=== PATIENT | male | born 1945 | race Caucasian/White ===

== ENCOUNTER 2017-09-15 08:46 | Day surgery (SDC) | payer OTHER ==
[~2017-09-15 08:46] MED LIST: AMLO5 PO; ATOR80 PO; CARV6.25 PO; FINA5 PO; HYDCHL25 PO; LISI20 PO; METF500 PO; Norco 10-325 T1 EACH PO; OXYC10TA19 PO; Omeprazole20 M1 PO; Prozac20 MG PO; TAMS.4ER PO
== END 2017-09-15 11:58 | disposition home or self-care (01) ==
LOC: RAD 08:46 → CT 10:00 → RAD 11:58 → CT 09-17 10:00
PROVIDERS: Radiology Diagnostic Radiology
PROC: BR27YZZ Computerized Tomography (CT Scan) of Thoracic Spine using Other Contrast (ICD-10-PCS; principal; 2017-09-15 11:00)
DX: M47.815 Spondylosis without myelopathy or radiculopathy, thoracolumbar region (principal); N20.0 Calculus of kidney; M51.24 Other intervertebral disc displacement, thoracic region
CPT/HCPCS: 62305; 72129; 72132; Q9966

== ENCOUNTER 2020-01-24 11:01 | Day surgery (SDC) | payer OTHER ==
[~2020-01-24] VITALS: Ht 177.8 cm; Wt 92.0 kg
[~2020-01-24 11:01] MED LIST changes: +Aspir 8181 MG PO; +CLOP75 PO; +NITR.4SL SL; +PANT40; +SERT50 PO
--- NOTE | 2020-01-24 11:56 | NUR ---
LINQ IMPLANT EXPLAINED ALL QUESTIONS ANSWERED. CALL LIGHT IN REACH.
--- NOTE | 2020-01-24 12:54 | NUR ---
TIME OUT WAS COMPLETED. PT TOLERATED LINQ IMPLANT WELL. LINQ CHEST WALL SITE SOFT NON-TENDER WITH NO HEMATOMA,NO BLEEDING AND INTACT DRESSING. [employer] REP JAIME IN ROOM FOR PT EDUCATION AND ANSWER PT QUESTIONS.
--- NOTE | 2020-01-24 13:19 | NUR ---
NO CHANGES TO LINQ SITE. DISCHARGE INSTRUCTIONS REVIEWED ALL QUESTIONS ANSWERED. PT AMBULATED OUT.
== END 2020-01-24 23:25 | disposition home or self-care (01) ==
LOC: MHTC 11:01
DX: R55 Syncope and collapse (principal); I10 Essential (primary) hypertension; E78.5 Hyperlipidemia, unspecified; K21.9 Gastro-esophageal reflux disease without esophagitis; Z88.8 Allergy status to other drugs, medicaments and biological substances; E11.9 Type 2 diabetes mellitus without complications; Z79.899 Other long term (current) drug therapy; Z95.1 Presence of aortocoronary bypass graft; Z87.891 Personal history of nicotine dependence; Z79.84 Long term (current) use of oral hypoglycemic drugs; Z79.02 Long term (current) use of antithrombotics/antiplatelets; Z79.82 Long term (current) use of aspirin; Z91.018 Allergy to other foods; Z91.012 Allergy to eggs
CPT/HCPCS: 33285; C1764

== ENCOUNTER 2020-02-04 12:20 | Emergency (ER) | payer OTHER, MEDICARE ==
[~2020-02-04] VITALS: Ht 177.8 cm; Wt 91.6 kg
[2020-02-04] MEDS ORDERED: METPRE4DP PO (15:40)
== END 2020-02-04 16:17 | disposition home or self-care (01) ==
LOC: ER 12:20
DX: M54.16 Radiculopathy, lumbar region (principal); Z79.84 Long term (current) use of oral hypoglycemic drugs; Z79.82 Long term (current) use of aspirin; Z79.02 Long term (current) use of antithrombotics/antiplatelets; Z79.899 Other long term (current) drug therapy
CPT/HCPCS: 96374; 96375; 99283-25; J1100; J1170; J1885; J2405

== ENCOUNTER 2023-01-05 16:08 | Inpatient (IN) | payer OTHER ==
[~2023-01-05] VITALS: Ht 177.8 cm; Wt 78.0 kg
[~2023-01-05 16:08] MED LIST changes: +METPRE4DP PO
[2023-01-05 17:33] LABS: BASOPHILS ABSOLUTE AUTO 0.05 K/mm3 (0.00-0.23); BASOPHILS PERCENT AUTO 1 % (0-2); EOSINOPHILS ABSOLUTE AUTO 0.39 K/mm3 (0.00-0.68); EOSINOPHILS PERCENT AUTO 5 % (0-6); Hematocrit 35.2 % (37.0-53.0); Hemoglobin 11.3 g/dL (13.5-17.5); IMMATURE GRAN ABSOLUTE AUTO 0.04 K/mm3 (0.00-0.10); IMMATURE GRAN PERCENT AUTO 1 % (0-1); LYMPHOCYTES ABSOLUTE AUTO 1.45 K/mm3 (0.84-5.20); LYMPHOCYTES PERCENT AUTO 18 % (21-46); MONOCYTES ABSOLUTE AUTO 0.67 K/mm3 (0.16-1.47); MONOCYTES PERCENT AUTO 8 % (4-13); Mean Corpuscular HGB 25.5 pg (26.0-34.0); Mean Corpuscular HGB Conc 32.1 g/dL (31.5-36.5); Mean Corpuscular Volume 79 fL (80-100); Mean Platelet Volume 9.3 fL (9.1-12.4); NEUTROPHILS ABSOLUTE AUTO 5.49 K/mm3 (1.96-9.15); NEUTROPHILS PERCENT AUTO 68 % (41-73); Platelet Count 346 K/mm3 (150-400); RDW Coefficient Variation 15.2 % (11.7-14.2); RDW Standard Deviation 43.8 fL (35.1-46.3); Red Blood Cell Count 4.44 M/mm3 (4.30-5.90); White Blood Cell Count 8.09 K/mm3 (4.00-11.30)
[2023-01-05 17:43] LABS: Albumin, Blood 3.5 g/dL (3.4-5.0); Albumin/Globulin Ratio 1.1 (0.8-1.8); Bilirubin, Total 0.5 mg/dL (0.1-1.0); Bun/Creatinine Ratio 18.3 (12.0-20.0); Calcium, Blood 9.3 mg/dL (8.5-10.1); Creatinine, Blood 1.09 mg/dL (0.60-1.20); Globulin, Blood 3.3 g/dL (2.2-4.0); Potassium, Blood 3.8 mmol/L (3.5-5.5); Total Protein, Blood 6.8 g/dL (6.4-8.2)
[2023-01-05 17:48] LABS: International Normalized Ratio 1.04; Prothrombin Time Results 10.9 Sec (9.7-11.5)
[2023-01-05 22:42] VITALS: BP 132/59
[2023-01-05] MEDS ORDERED: ACET500 PO (22:48)
[2023-01-05] MEDS ORDERED: Cymbalta20 MG PO (22:51)
[2023-01-05] MEDS ORDERED: JARDIANCE25 MG PO (22:52)
[2023-01-06 00:17] LABS: BASOPHILS ABSOLUTE AUTO 0.06 K/mm3 (0.00-0.23); BASOPHILS PERCENT AUTO 1 % (0-2); EOSINOPHILS ABSOLUTE AUTO 0.51 K/mm3 (0.00-0.68); EOSINOPHILS PERCENT AUTO 5 % (0-6); Hematocrit 35.1 % (37.0-53.0); Hemoglobin 11.5 g/dL (13.5-17.5); IMMATURE GRAN ABSOLUTE AUTO 0.04 K/mm3 (0.00-0.10); IMMATURE GRAN PERCENT AUTO 0 % (0-1); LYMPHOCYTES ABSOLUTE AUTO 2.05 K/mm3 (0.84-5.20); LYMPHOCYTES PERCENT AUTO 22 % (21-46); MONOCYTES ABSOLUTE AUTO 0.95 K/mm3 (0.16-1.47); MONOCYTES PERCENT AUTO 10 % (4-13); Mean Corpuscular HGB 25.7 pg (26.0-34.0); Mean Corpuscular HGB Conc 32.8 g/dL (31.5-36.5); Mean Corpuscular Volume 78 fL (80-100); Mean Platelet Volume 9.2 fL (9.1-12.4); NEUTROPHILS ABSOLUTE AUTO 5.76 K/mm3 (1.96-9.15); NEUTROPHILS PERCENT AUTO 62 % (41-73); Platelet Count 331 K/mm3 (150-400); RDW Coefficient Variation 15.4 % (11.7-14.2); Red Blood Cell Count 4.48 M/mm3 (4.30-5.90); White Blood Cell Count 9.37 K/mm3 (4.00-11.30)
[2023-01-06 00:34] LABS: Anti-Xa UFH, PHA Monitoring 0.54 IU/mL
[2023-01-06 00:44] LABS: Albumin, Blood 3.6 g/dL (3.4-5.0); Albumin/Globulin Ratio 1.1 (0.8-1.8); Bilirubin, Total 0.5 mg/dL (0.1-1.0); Bun/Creatinine Ratio 16.7 (12.0-20.0); Calcium, Blood 9.2 mg/dL (8.5-10.1); Creatinine, Blood 1.38 mg/dL (0.60-1.20); Globulin, Blood 3.3 g/dL (2.2-4.0); Potassium, Blood 3.7 mmol/L (3.5-5.5); Total Protein, Blood 6.9 g/dL (6.4-8.2)
[2023-01-06 03:48] VITALS: BP 129/55
--- NOTE | 2023-01-06 04:38 | NUR ---
SHIFT SUMMARY NOC PT A/O X 4. ADMIT FROM ED WITH MULTIPLE PE'S. PT IS INDEPENDENT IN ROOM/CONTINENT. PT IS RECEIVING HEPARIN INFUSION 18 U/KG/HR AT RATE OF 28.1 ML/HR FOR ANTICOAGULATION. PT ON TELE RUNNING NSR IN 70'S. PT HAD VENOUS DUPLEX DOPPLER ULTRASOUND PERFORMED WHICH SHOWED POSITIVE FOR PE IN R CALF AND L POPLITEAL WITH BOTH BEING NON OCCLUSIVE. PT HAS CHRONIC BACK PAIN FROM SURGERY 3 MONTHS AGO AND HAS TORADOL ORDERED FOR PAIN MANAGEMENT. PT IS CURRENTLY RESTING WITH BED IN LOWEST POSITION, AND CALL LIGHT WITHIN REACH.
[2023-01-06 07:20] VITALS: BP 123/52
[2023-01-06] MEDS ORDERED: ELIQUIS5 MG (16:28)
[2023-01-06] MEDS ORDERED: ELIQUIS5 M2 PO (16:28)
--- NOTE | 2023-01-06 18:28 | NUR ---
PT DISCHARGED 1643 WITH DC INSTRUCTIONS. [facility] WITH ELIQUIS 10MG BEFORE DISCHARGE THIS EVENING. HERE TO TX PT HOME. WHEELCHAIR OUT TO PRIVATE CAR.
== END 2023-01-06 17:13 | disposition home or self-care (01) | DRG 176 ==
LOC: ER 16:08 → MEDS 16:09
PROVIDERS: Emergency Medicine; Student in an Organized Health Care Education/Training Program; ADMIT Internal Medicine
DX: I26.99 Other pulmonary embolism without acute cor pulmonale (principal); I82.432 Acute embolism and thrombosis of left popliteal vein; I82.451 Acute embolism and thrombosis of right peroneal vein; I82.441 Acute embolism and thrombosis of right tibial vein; E11.22 Type 2 diabetes mellitus with diabetic chronic kidney disease; N18.30 Chronic kidney disease, stage 3 unspecified; I25.10 Atherosclerotic heart disease of native coronary artery without angina pectoris; D63.1 Anemia in chronic kidney disease; E11.65 Type 2 diabetes mellitus with hyperglycemia; N40.0 Benign prostatic hyperplasia without lower urinary tract symptoms; Z85.118 Personal history of other malignant neoplasm of bronchus and lung; Z88.8 Allergy status to other drugs, medicaments and biological substances; Z88.5 Allergy status to narcotic agent; Z79.84 Long term (current) use of oral hypoglycemic drugs; Z79.82 Long term (current) use of aspirin; Z79.02 Long term (current) use of antithrombotics/antiplatelets; Z79.891 Long term (current) use of opiate analgesic; Z95.1 Presence of aortocoronary bypass graft; Z85.828 Personal history of other malignant neoplasm of skin
CPT/HCPCS: 36415; 80053; 82947; 83036; 84484; 85025; 85520; 85610; 85730; 93005; 93010; 93970; 96374; 96375; 96376; 99285-25; A9270; G0378; J1644; J1885

== ENCOUNTER 2023-10-12 17:23 | Inpatient (IN) | payer OTHER ==
[~2023-10-12] VITALS: Ht 177.8 cm; Wt 71.7 kg
[~2023-10-12 17:23] MED LIST changes: +ACET500 PO; +Cymbalta20 MG PO; +ELIQUIS5 M2 PO; +ELIQUIS5 MG; +JARDIANCE25 MG PO; -PANT40; +PANT40 PO
[2023-10-12 18:04] LABS: BASOPHILS ABSOLUTE AUTO 0.04 K/mm3 (0.00-0.23); BASOPHILS PERCENT AUTO 1 % (0-2); EOSINOPHILS ABSOLUTE AUTO 0.17 K/mm3 (0.00-0.68); EOSINOPHILS PERCENT AUTO 2 % (0-6); Hematocrit 37.5 % (37.0-53.0); Hemoglobin 12.7 g/dL (13.5-17.5); IMMATURE GRAN ABSOLUTE AUTO 0.02 K/mm3 (0.00-0.10); IMMATURE GRAN PERCENT AUTO 0 % (0-1); LYMPHOCYTES ABSOLUTE AUTO 1.64 K/mm3 (0.84-5.20); LYMPHOCYTES PERCENT AUTO 22 % (21-46); MONOCYTES ABSOLUTE AUTO 0.59 K/mm3 (0.16-1.47); MONOCYTES PERCENT AUTO 8 % (4-13); Mean Corpuscular HGB 28.4 pg (26.0-34.0); Mean Corpuscular HGB Conc 33.9 g/dL (31.5-36.5); Mean Corpuscular Volume 84 fL (80-100); NEUTROPHILS ABSOLUTE AUTO 5.12 K/mm3 (1.96-9.15); NEUTROPHILS PERCENT AUTO 68 % (41-73); Platelet Count 288 K/mm3 (150-400); RDW Coefficient Variation 14.6 % (11.7-14.2); RDW Standard Deviation 44.1 fL (35.1-46.3); Red Blood Cell Count 4.47 M/mm3 (4.30-5.90); White Blood Cell Count 7.58 K/mm3 (4.00-11.30)
[2023-10-12 18:17] LABS: International Normalized Ratio 1.03
[2023-10-12 18:24] LABS: Albumin, Blood 3.8 g/dL (3.4-5.0); Albumin/Globulin Ratio 1.1 (0.8-1.8); Bilirubin, Total 0.7 mg/dL (0.1-1.0); Bun/Creatinine Ratio 19.4 (12.0-20.0); Calcium, Blood 9.5 mg/dL (8.5-10.1); Creatinine, Blood 0.98 mg/dL (0.60-1.20); Globulin, Blood 3.4 g/dL (2.2-4.0); Potassium, Blood 4.1 mmol/L (3.5-5.5); Total Protein, Blood 7.2 g/dL (6.4-8.2)
[2023-10-12 21:02] LABS: Source, Urine Clean Catch
[2023-10-12 21:06] LABS: Appearance, Urine Clear (Clear); Bilirubin, Urine Neg (Neg); Blood, Urine Neg (Neg); Color, Urine Yellow (P-Yellow); Glucose Qualitative, Urine Neg (Neg); Ketones, Urine Neg (Neg); Leukocyte Esterase, Urine Neg (Neg); Nitrite, Urine Neg (Neg); Protein, Urine Neg (Neg); Urobilinogen, Urine 1+ (Normal)
[2023-10-12] MEDS ORDERED: Acetaminophen 325 MG TABLET PO PRN (23:30)
[2023-10-12] MEDS ORDERED: Nitroglycerin 0.4 MG SUBL SL PRN (23:30)
[2023-10-13] MEDS ORDERED: Apixaban 5 MG Tab PO SCH ×2
[2023-10-13 01:52] VITALS: BP 153/70
--- NOTE | 2023-10-13 02:44 | NUR ---
ARRIVAL TO PCU AFTER RECEIVING REPORT FROM ED RN, PATIENT ARRIVED TO PCU AT APPROX 0145. PATIENT ALERT AND ORIENTED X4. COMMUNICATES NEEDS EFFECTIVELY. NO SLURRED SPEECH OR FACIAL DROOP ASSESSED. DOES ENDORSE VISION DIFFICULY WITH THE L EYE. PERRLA. EQUAL RELIEF MAN STRENGTH. REPORTS INCREASING WEAKNESS, GAIT DIFFICULTIES CAUSING A FALL AT HOME. ABLE TO STAND AND TRANSFER TO BED WITH 1P ASSIST. USES A CANE, FWW AT BASELINE. TELEMETRY SHOWING SINUS 80s. BP STABLE. DENIES CHEST PAIN, PRESSURE. WHILE AWAKE, TOLERATES ROOM AIR, SATs >90%. RR EVEN, UNLABORED. PLACED ON 2L VIA NC WITH SLEEP D/T HX OF KELLY WITH CPAP USE AT BASELINE. ENDORSES CPAP NONCOMPLIANCE AT HOME THE MASK DOES NOT FIT PROPERLY SINCE HIS NECK PROCEDURE X5 WEEKS AGO. REPORTS DYSPHAGIA SINCE NECK PROCEDURE - CAUSING AN APPROX 30LB WEIGHT LOSS. ST CHARISSE ORDERED. NPO AT THIS TIME, MEDS TO BE GIVEN WITH APPLESAUCE OR PUDDING. CALL LIGHT IN REACH. BED ALARM ON.
[2023-10-13 03:49] LABS: BASOPHILS ABSOLUTE AUTO 0.03 K/mm3 (0.00-0.23); BASOPHILS PERCENT AUTO 0 % (0-2); EOSINOPHILS ABSOLUTE AUTO 0.16 K/mm3 (0.00-0.68); EOSINOPHILS PERCENT AUTO 2 % (0-6); Hemoglobin 11.7 g/dL (13.5-17.5); IMMATURE GRAN ABSOLUTE AUTO 0.02 K/mm3 (0.00-0.10); IMMATURE GRAN PERCENT AUTO 0 % (0-1); LYMPHOCYTES ABSOLUTE AUTO 1.82 K/mm3 (0.84-5.20); LYMPHOCYTES PERCENT AUTO 27 % (21-46); MONOCYTES ABSOLUTE AUTO 0.56 K/mm3 (0.16-1.47); MONOCYTES PERCENT AUTO 8 % (4-13); Mean Corpuscular HGB 27.5 pg (26.0-34.0); Mean Corpuscular HGB Conc 32.5 g/dL (31.5-36.5); Mean Corpuscular Volume 85 fL (80-100); Mean Platelet Volume 8.9 fL (9.1-12.4); NEUTROPHILS PERCENT AUTO 61 % (41-73); Platelet Count 269 K/mm3 (150-400); RDW Coefficient Variation 14.6 % (11.7-14.2); RDW Standard Deviation 44.8 fL (35.1-46.3); Red Blood Cell Count 4.26 M/mm3 (4.30-5.90); White Blood Cell Count 6.69 K/mm3 (4.00-11.30)
[2023-10-13 03:57] VITALS: BP 129/66
[2023-10-13 04:21] LABS: Alanine Aminotransfer (ALT/SGP 21 U/L (12-78); Albumin, Blood 3.6 g/dL (3.4-5.0); Albumin/Globulin Ratio 1.2 (0.8-1.8); Alk Phos 65 U/L (50-136); Anion Gap 10 mmol/L (3-11); Aspartate Aminotrans (AST/SGOT 11 U/L (12-37); Blood Urea Nitrogen 18 mg/dL (8-24); CHOL/HDL RATIO 2.5; CO2, Blood 32 mmol/L (21-32); Calcium, Blood 9.2 mg/dL (8.5-10.1); Chloride, Blood 104 mmol/L (98-108); Cholesterol 97 mg/dL (50-200); Globulin, Blood 3.1 g/dL (2.2-4.0); Glomerular Filtration Rate 77 (60-); Glucose, Blood 151 mg/dL (70-99); HDL Cholesterol 39 mg/dL (>39); LDL/HDL RATIO 1.1; Low Density Lipoprotein Chol 41 mg/dL (0-110); Potassium, Blood 4.5 mmol/L (3.5-5.5); Sodium, Blood 141 mmol/L (136-145); Total Protein, Blood 6.7 g/dL (6.4-8.2); Triglycerides 84 mg/dL (30-160); Very Low Density Lipoprot Chol 16 mg/dL (6-32)
--- NOTE | 2023-10-13 05:29 | NUR ---
SHIFT SUMMARY NO ACUTE CHANGES SINCE ARRIVAL TO PCU. PATIENT SLEPT T/O - EASILY AROUSABLE WITH VERBAL STIMULI. NO NEURO CHANGES SINCE PREVIOUS NOTE. VSS. TELEMETRY SHOWING SINUS 70s. DENIES CHEST PAIN, PRESSURE. SATs >90% ON 2L VIA NC WITH SLEEP. SWALLOWED SCHEDULED PROTONIX PILL WHOLE WITH APPLESAUCE, NO DIFFICULTIES NOTED OR REPORTED. INDEPENDENT WITH URINAL. REPOSITIONS HIMSELF INDEPENDENTLY. CALL LIGHT IN REACH. WILL CONTINUE TO MONITOR AND REPORT TO ONCOMING RN.
[2023-10-13] MEDS ORDERED: Pantoprazole Sodium 40 MG Tab PO SCH ×2 (06:00→09:00)
[2023-10-13 08:03] VITALS: BP 129/67
[2023-10-13] MEDS ORDERED: Finasteride 5 MG Tab PO SCH (09:00)
[2023-10-13] MEDS ORDERED: Aspirin 81 MG Chew PO SCH (09:00)
[2023-10-13] MEDS ORDERED: Empagliflozin 25 MG TAB PO SCH (09:00)
[2023-10-13 11:25] VITALS: BP 109/66
[2023-10-13] MEDS ORDERED: BUPRENORPHINE HC2 MG SL (11:29)
[2023-10-13] MEDS ORDERED: Insulin Regular 100 UNIT/ML 10ML Vial SC SCH ×2 (11:30)
[2023-10-13] MEDS ORDERED: buprenorphine HCL 2 MG TAB.SUBL SL PRN (13:15)
[2023-10-13 15:13] VITALS: BP 135/75
--- NOTE | 2023-10-13 16:19 | NUR ---
SHIFT SUMMARY THE PT IS A&OX4, ACHS CBG'S, 1P SBA W/ GB AND FWW, USES THE URINAL IND, AND HE IS ABLE TO MAKE HIS NEEDS KNOWN. THE PT DOES REPORT VISUAL IMPAIRMENTS IN THE LEFT EYE. HE STATES HE THAT HIS VISION IS " LIKE LOOKING INTO A FISH BOWL BACKWARDS" IT IS ROUNDED. ALSO, THE PT STATES OFF CENTERED DOUBLE VISION FROM HIS LEFT EYE. POOR PERIPHERAL VISION NOTED. THE PT HAS CHRONIC N/T IN BLE. HE IS REPORTING ACUTE N/T IN LEFT WRIST. HE WAS EVALUATED BY SPEECH THERAPY TODAY AND HE WAS ADVANCED TO A PUREE DIET, PILLS CRUSHED IN APPLE SAUCE, AND ASP PERCAUTIONS. THE PT WILL HAVE A SWALLOW STUDY 10/13. HE HAD AN ECHO AND NECK/HEAD MRI TODAY. HE HAS BEEN HAVING NECK AND BACK PAIN AND HE WAS MEDICATED PER EMAR W/ TYLENOL . THE PT'S IS GOING TO BRING IN HIS HOME PAIN MEDS TO HELP MANAGE PAIN. NO ACUTE EVENTS. THE PT WILL BE TRANSFERING TO MEDICAL FLOOR, ROOM 336.
[2023-10-13] MEDS ORDERED: BUPRENORPHINE 300 MCG XX PRN (17:30)
[2023-10-13 20:49] VITALS: BP 147/76
[2023-10-13] MEDS ORDERED: Atorvastatin 40 MG Tab PO SCH ×2 (21:00)
[2023-10-14 02:53] VITALS: BP 147/69
--- NOTE | 2023-10-14 04:06 | NUR ---
SHIFT SUMMARY. PATIENT IS A&OX4. PATIENT IS ABLE TO MAKE HIS NEEDS KNOWN. PATIENT IN WITH CVA. PATIENT USING URINAL INDEPENDENTLY AT BEDSIDE. PATIENT REPORTS PAIN-MEDICATED WITH HOME MEDICATION-SEE ORDERS; PATIENT REPORTS RELIEF FROM HOME MEDICATION. RESPIRATORY IN TO SEE PATIENT-HOME CPAP SET UP AND ADJUSTED FOR PATIENT. PATIENT RESTED MOST OF SHIFT WEARING CPAP AND RESPIRATIONS EQUAL AND UNLABORED. PATIENT WILL CALL TO GET UP TO BATHROOM. BED IS LOCKED IN THE LOWEST POSITION WITH CALL LIGHT IN REACH. CARE IS ONGOING.
[2023-10-14 07:28] VITALS: BP 136/74
[2023-10-14] MEDS ORDERED: Lisinopril 20 MG Tab PO SCH (09:00)
[2023-10-14] MEDS ORDERED: HydroCHLOROthiazide 25 mg Tab PO SCH (09:00)
[2023-10-14] MEDS ORDERED: DULoxetine HCL 30 MG Cap DR PO SCH (09:00)
[2023-10-14 15:22] VITALS: BP 119/67
--- NOTE | 2023-10-14 17:54 | NUR ---
NO ACUTE CHANGES, PLEASANT TO CARE, EASILY MAKES NEEDS KNOWN, WORKED WITH PT, EDUCATED ON SLOWING DOWN WITH AMBULATION, PATIENT REPORTED STILL FEELING DIZZY WITH AMBULATIO. [facility] ACCEPT[facility] PAT[facility] FOR TOMOR[facility], AND [facility]. VSS, INDEPEDANT WITH BSU, CALL LIGHT WITH IN REACH, WILL RELAY TO PM RN
[2023-10-14 20:17] VITALS: BP 121/67
[2023-10-15 01:51] VITALS: BP 124/60
--- NOTE | 2023-10-15 04:47 | NUR ---
Pt rested quietly through the night. CPAP in use. No distress noted.
[2023-10-15 07:27] VITALS: BP 124/64
[2023-10-15] MEDS ORDERED: DULO30 PO (10:23)
[2023-10-15 11:27] LABS: SARS-Cov-2 (COVID-19) PCR, MMC NEGATIVE (NEGATIVE)
--- NOTE | 2023-10-15 12:18 | NUR ---
PT AWAKE AT START OF SHIFT, SITTING UP IN BED. NO C/O. ADMITTED FOR CVA WITH L SIDE WEAKNESS; MINIMAL DEFICITS AT THIS TIME. SOME SPEECH AND SWALLOWING DIFFICULTY NOTED. DR HOLLAND IN TO SEE PT AND DISCUSS PLAN OF CARE. PT TO D/C TO SNF TODAY. TRANSPORT TO ARRIVE AT 1300. PT ABLE TO WORK WITH THERAPY. SP TX IN WELL. PT'S AT BS. PHARMACY IN TO DISCUSS D/C MEDICATIONS. ASSISTING PT WITH DRESSING AND BELONGINGS. NO FURTHER NEEDS AT THIS TIME.
--- NOTE | 2023-10-15 15:59 | NUR ---
1538 PT AT FACILITY; REPORT CALLED TO CELINA ELLIOTT.
== END 2023-10-15 15:13 | disposition hospice, inpatient (51) | DRG 65 ==
LOC: ER 17:23 → MEDS 17:24 → PCU 10-13 01:42 → MEDS 10-13 14:44 → PCU 10-13 14:44 → MEDS 10-13 17:45 → ENPENDDIS 10-15 10:09 → MEDS 10-15 14:07
PROVIDERS: Family Medicine; Student in an Organized Health Care Education/Training Program; ADMIT Internal Medicine
DX: I63.9 Cerebral infarction, unspecified (principal); G81.94 Hemiplegia, unspecified affecting left nondominant side; M48.02 Spinal stenosis, cervical region; R13.10 Dysphagia, unspecified; E11.9 Type 2 diabetes mellitus without complications; I25.10 Atherosclerotic heart disease of native coronary artery without angina pectoris; I10 Essential (primary) hypertension; R47.81 Slurred speech; M54.12 Radiculopathy, cervical region; M54.16 Radiculopathy, lumbar region; Z88.8 Allergy status to other drugs, medicaments and biological substances; Z88.5 Allergy status to narcotic agent; Z79.01 Long term (current) use of anticoagulants; Z98.1 Arthrodesis status; Z79.899 Other long term (current) drug therapy; Z79.84 Long term (current) use of oral hypoglycemic drugs; Z86.711 Personal history of pulmonary embolism; Z86.718 Personal history of other venous thrombosis and embolism; Z79.82 Long term (current) use of aspirin; Z98.890 Other specified postprocedural states; Z90.49 Acquired absence of other specified parts of digestive tract; Z95.1 Presence of aortocoronary bypass graft; Z85.118 Personal history of other malignant neoplasm of bronchus and lung
CPT/HCPCS: 36415; 70450; 70496; 70498; 70551; 71046; 71260; 72141; 74230; 80053; 80061; 81003; 82947; 83036; 83880; 84484; 85025; 85610; 85651; 86140; 86592; 92526; 92610; 92611; 93005; 93010; 93306; 94762; 97110-CQ; 97112-CQ; 97162; 97165; 97530; 97535; 99285-25; A9270; G0378; J1815; Q9967; U0002